=== PATIENT | female | born 1935 | race Two or more races ===

== ENCOUNTER → 2018-01-06 | Outpatient (CLI) | payer MEDICARE, BC ==
[~2018-01-06] MED LIST: AMLO5 PO; Bactrim Ds Tab1 EACH PO; Keflex500 MG PO; NAPR220 PO
== END | disposition home or self-care (01) ==
LOC: LAB SHORT 19:28 → LAB 19:28
PROVIDERS: Family Medicine
DX: Z12.4 Encounter for screening for malignant neoplasm of cervix (principal)
CPT/HCPCS: 88175

== ENCOUNTER → 2018-07-15 | Outpatient (CLI) | payer MEDICARE, BC | END | disposition home or self-care (01) | LOC: LAB SHORT 13:56 → PLD 13:56 | DX: R59.0 Localized enlarged lymph nodes (principal) | CPT/HCPCS: 88173 ==

== ENCOUNTER 2018-08-21 06:46 | Day surgery (SDC) | payer MEDICARE, BC ==
[~2018-08-21] VITALS: Ht 147.3 cm; Wt 52.3 kg
== END 2018-08-21 10:00 | disposition home or self-care (01) ==
LOC: ORSCSDS 06:46
PROVIDERS: Otolaryngology
PROC: 0CBS8ZX Excision of Larynx, Via Natural or Artificial Opening Endoscopic, Diagnostic (ICD-10-PCS; principal; 2018-08-21 08:00)
PROC: 0DB58ZX Excision of Esophagus, Via Natural or Artificial Opening Endoscopic, Diagnostic (ICD-10-PCS; principal; 2018-08-21 08:00)
DX: C15.3 Malignant neoplasm of upper third of esophagus (principal); C79.89 Secondary malignant neoplasm of other specified sites; R59.0 Localized enlarged lymph nodes
CPT/HCPCS: 88305; 88342; J0171; J0690; J1100; J2250; J2704; J3010; J7120

== ENCOUNTER 2018-09-17 07:25 | Day surgery (SDC) | payer MEDICARE, BC ==
[~2018-09-17] VITALS: Ht 147.3 cm; Wt 51.2 kg
--- NOTE | 2018-09-17 07:57 | NUR ---
Ambulatory in Day Surgery History, Chart, Medications and Allergies reviewed before start of procedure.Lungs clear T/O to Auscultation. Patient confirms NPO status and agrees with scheduled surgery. Surgical site prepped with 2% Chlorhexidine cloth wipe. Patient States Post-Procedure ride home has been arranged.
--- NOTE | 2018-09-17 08:18 | NUR ---
"DAY SURGERY RN | REPORT FROM VIMAL VAZQUEZ. Patient denies needs or questions at this time. Resting comfortably with family present at bedside."
--- NOTE | 2018-09-17 11:06 | NUR ---
09/17/18 1106 Ryan Hurtado History, Chart, Medications and Allergies reviewed before start of procedure.MONITOR INTACT WITH CONTINUOUS PULSE OXIMETRY AND INTERMITTENT BP.3-LEAD EKG REVIEWED WITH PHYSICIAN PRIOR TO START OF PROCEDURE.Patient confirms NPO status and agrees with scheduled surgery.See Anesthesia record.
--- NOTE | 2018-09-17 11:12 | NUR ---
PT CARE TRANSFERRED TO VIMAL VAZQUEZ. DR ALVARADO IN TO SEE PT.
--- NOTE | 2018-09-17 12:47 | NUR ---
REPORT FROM JOANNA LOPEZ RN. PT DENIES PAIN OR NAUSEA. PT HAS A DRY COUGH. VSS. DRESSING TO PEG TUBE CDI. EDUCATED PT ABOUT FUNCTION OF TUBE.
--- NOTE | 2018-09-17 13:31 | NUR ---
Discharge instructions reviewed with patient. Patient verbalizes understanding. Copy given to patient to take home. DRG/PEG C/D/I. VERBALIZED UNDERSTANDING OF PEG TUBE/FACING END TRIMMER MEETING TOMORROW AM. Patient States Post-Procedure ride home has been arranged. Discharged via wheelchair to private car for ride home.
== END 2018-09-17 22:50 | disposition home or self-care (01) ==
LOC: ORSCMMR 07:25 → ORD 09:00 → ORSCMMR 09:00
PROVIDERS: Surgery
PROC: 0DH63UZ Insertion of Feeding Device into Stomach, Percutaneous Approach (ICD-10-PCS; principal; 2018-09-17 09:00)
DX: C15.3 Malignant neoplasm of upper third of esophagus (principal); R13.12 Dysphagia, oropharyngeal phase; I10 Essential (primary) hypertension; E78.00 Pure hypercholesterolemia, unspecified; G62.9 Polyneuropathy, unspecified
CPT/HCPCS: C1769; J0330; J0690; J1100; J2704; J3010; J7120

== ENCOUNTER 2018-11-14 00:27 | Day surgery (SDC) | payer MEDICARE, BC | END 2018-11-14 23:28 | disposition home or self-care (01) | LOC: ATC 00:27 | DX: E86.0 Dehydration (principal); C15.3 Malignant neoplasm of upper third of esophagus; C10.2 Malignant neoplasm of lateral wall of oropharynx; C77.0 Secondary and unspecified malignant neoplasm of lymph nodes of head, face and neck | CPT/HCPCS: 96360; J7030 ==